=== PATIENT | male | born 1975 | race Caucasian/White ===

== ENCOUNTER 2018-10-24 12:17 | Emergency (ER) | payer OTHER, SELFPAY ==
[2018-10-24 12:18] VITALS: BP 152/87; PULSE 73; RESP 16; TEMP 36.9; O2SAT 100; BMI 18.9
--- NOTE | 2018-10-24 12:21 | ED.RN ---
[facility]ESS RACING, CARLOS STATES HE'S ABLE TO TAKE PT HOME WHEN THE TIME COMES. CARLOS CAN BE REACHED AT [phone].
--- NOTE | 2018-10-24 12:27 | ED.DCSUM_ITS ---
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 The string wrapped tightly around his left hand while he was working. He is currently unable to bend his left index finger and his nail was removed from the left third finger. He is right-hand dominant. He is unsure of his last tetanus update. Physical Examination: Vital signs unremarkable. Patient sitting upright in bed no acute distress. Left upper extremity examination reveals his left index finger to be held in extension. He states he is unable to flex. He does have tenderness and will not allow me to passively flex his finger. He has normal cap refill and sensation. Left third finger reveals skin avulsion on the distal aspect of the finger. There is also a nail avulsion. Test Results: Left hand x-ray reveals subluxation of the proximal IP joint of the left index finger. No bony abnormality noted to the third finger. Emergency Department Course and Treatment: Patient was given Adacel and naproxen. Digital block was performed on both the index and long fingers of the left hand. Left distal finger was cleansed. Surgifoam was placed along with dressing. There is no laceration amenable to suture. The left index finger was reduced. Following this patient has good range of motion. Repeat finger x-rays revealed no fractures. Patient be given an AlumaFoam splint to wear for the next 2 days. He will follow-up with [facility]. Treatment Plan: [] Disposition: Discharge Impression: 1. Left third finger nail and skin avulsion 2. Left index finger PIP subluxation, reduced This note was generated with [employer] dictation software. It may contain incorrect words, spelling, and punctuation that were not noted in review of the chart prior to signing ED Disposition - Plan for ED Patient: Disposition: Home or Assisted Living Instructions: ED Avulsion Nail Complete, ED Sprain Finger Prescriptions: Naproxen [Naprosyn] 500 mg PO BID PRN #20 tablet Referrals: [facility]] - 2 Days
--- NOTE | 2018-10-24 12:42 | RAD_ITS ---
STUDY: X-RAY - LEFT HAND REASON FOR EXAM: Male, 43 years old. Pain following injury of the third and fourth digits. TECHNIQUE: 3 view(s) of the hand. COMPARISON: None. FINDINGS: Normal radiocarpal articulation. Normal distal radioulnar joint. Normal visualized carpal bones. Normal carpal articulations Normal carpometacarpal articulation of the thumb. Normal second through fifth carpometacarpal joints. Normal metacarpi. Normal metacarpophalangeal joint of the thumb. Normal interphalangeal joint of the thumb. Normal proximal and distal phalanges of the thumb. Normal metacarpophalangeal joints of the second through fifth fingers. Subluxation at the proximal interphalangeal joint of the index finger. Normal phalanges of the second through fifth fingers. Soft tissue swelling. RAD/Hand Min 3 Views IMPRESSION: Subluxation at the proximal interphalangeal joint of the index finger. Electronically Signed: Jose Luna, at 13:07 EDT , Service support ,
[2018-10-24] MEDS: Diphth,Pertuss(Acell),Tet Vac 0.5 ML Vial IM (12:55)
[2018-10-24] MEDS: Naproxen 500 MG Tablet PO (12:55)
--- NOTE | 2018-10-24 14:13 | RAD_ITS ---
STUDY: X-RAY - LEFT HAND, ATTENTION INDEX FINGER REASON FOR EXAM: Male, 43 years old. Post reduction examination. TECHNIQUE: 3 view(s) of the finger were obtained. COMPARISON: None. FINDINGS: Normal metacarpal head. Normal metacarpophalangeal joint. Normal proximal phalanx. Normal middle phalanx. Normal distal phalanx. Satisfactory reduction of the proximal interphalangeal joint. Normal proximal interphalangeal joint. Normal distal interphalangeal joint. RAD/Finger(s) Min 2 Views IMPRESSION: Satisfactory reduction of the proximal interphalangeal joint of the index finger. Electronically Signed: Jose Luna, at 14:41 EDT , Service support ,
[2018-10-24 15:22] VITALS: PULSE 70; RESP 18; O2SAT 96
== END 2018-10-24 15:24 | disposition home or self-care (01) ==
PROVIDERS: Emergency Provider Emergency Medicine
DX: S63.231A Subluxation of proximal interphalangeal joint of left index finger, initial encounter (principal); S61.303A Unspecified open wound of left middle finger with damage to nail, initial encounter; X58.XXXA Exposure to other specified factors, initial encounter; Y93.9 Activity, unspecified; Y92.9 Unspecified place or not applicable; Z72.0 Tobacco use
CPT/HCPCS: 26770; 73130; 73140; 90471; 90715; 99283